=== PATIENT | female | born 1975 | race Caucasian/White ===

== ENCOUNTER → 2017-05-23 | Outpatient (CLI) | payer OTHER ==
[~2017-05-23] MED LIST: BACTRIM DS 8001 TA1 PO; CIPRO500 MG PO; DARVOCET N 1001 TAB PO; MOTRIN800 MG PO; PHENERGAN W/DM120 ML PO; ULTRAM50 MG PO
== END ==
LOC: LAB 11:06
DX: Z53.9 Procedure and treatment not carried out, unspecified reason (principal)

== ENCOUNTER 2021-01-29 13:53 | Emergency (ER) | payer OTHER ==
[~2021-01-29] VITALS: Ht 154.9 cm; Wt 59.0 kg
[2021-01-29] MEDS ORDERED: FLONASE ALLERG9.9 ML NAS (14:32)
[2021-01-29] MEDS ORDERED: AUGMENTIN 875875 MG PO (14:32)
== END 2021-01-29 14:56 | disposition home or self-care (01) ==
LOC: ED 13:53
DX: J32.9 Chronic sinusitis, unspecified (principal); K08.89 Other specified disorders of teeth and supporting structures; H92.01 Otalgia, right ear; F17.200 Nicotine dependence, unspecified, uncomplicated; Z79.899 Other long term (current) drug therapy